=== PATIENT | male | born 1950 | race Caucasian/White ===

== ENCOUNTER 2017-11-02 12:30 | Inpatient (IN) | payer OTHER ==
[~2017-11-02] VITALS: Ht 170.2 cm; Wt 97.1 kg
== END 2017-11-09 16:47 | disposition home or self-care (01) | DRG 331 ==
LOC: O/R 11-07 08:17 → SURG 11-07 08:17 → SURH 11-07 12:30 → SURG 11-07 15:18
PROVIDERS: Colon & Rectal Surgery
PROC: 07TC4ZZ Resection of Pelvis Lymphatic, Percutaneous Endoscopic Approach (ICD-10-PCS; 2017-11-07)
PROC: 0DJD8ZZ Inspection of Lower Intestinal Tract, Via Natural or Artificial Opening Endoscopic (ICD-10-PCS; 2017-11-07)
PROC: 0DTN4ZZ Resection of Sigmoid Colon, Percutaneous Endoscopic Approach (ICD-10-PCS; principal; 2017-11-07 15:45)
DX: C19 Malignant neoplasm of rectosigmoid junction (principal); Z85.048 Personal history of other malignant neoplasm of rectum, rectosigmoid junction, and anus

== ENCOUNTER 2017-11-06 11:01 | Day surgery (SDC) | payer OTHER | END 2017-11-06 15:15 | disposition home or self-care (01) | LOC: AMB-ENDOS 11:01 | DX: C19 Malignant neoplasm of rectosigmoid junction (principal); K64.1 Second degree hemorrhoids ==

== ENCOUNTER 2018-01-10 06:00 | Day surgery (SDC) | payer OTHER | END 2018-01-10 11:23 | disposition home or self-care (01) | LOC: CIR.AMB 06:00 | DX: C19 Malignant neoplasm of rectosigmoid junction (principal) | CPT/HCPCS: 36561; C1751 ==

== ENCOUNTER 2018-12-14 06:20 | Day surgery (SDC) | payer OTHER | END 2018-12-14 11:00 | disposition home or self-care (01) | LOC: AMB-ENDOS 06:20 | DX: D12.2 Benign neoplasm of ascending colon (principal); K64.1 Second degree hemorrhoids ==